=== PATIENT | male | born 1970 | race Caucasian/White ===

== ENCOUNTER 2017-01-27 21:40 | Observation (INO) | payer MEDICARE, OTHER ==
[~2017-01-27 21:40] MED LIST: NALOXONE HCL 0.4 MG/ML AMP IV PRN
[2017-01-27 22:06] VITALS: BP 189/100; PULSE 71; RESP 18; TEMP 98; O2SAT 98
[2017-01-27] MEDS: SODIUM CHLORIDE 0.9% FLUSH 10 ML FLUSH IV FLUSH SCH (22:09)
[2017-01-27] MEDS: cloNIDine HCL 0.1 MG TAB PO PRN (22:09)
--- NOTE | 2017-01-27 23:24 | RADRPT ---
EXAM DATE/TIME: 01/27/2017 23:00 [facility] COMPARISON: No previous studies available for comparison. INDICATIONS : Shortness of breath with elevated D-Dimer. IV CONTRAST: 75 cc Omnipaque 350 (iohexol) IV RADIATION DOSE: 8.43 CTDIvol (mGy) MEDICAL HISTORY : Hypertension. SURGICAL HISTORY : None. ENCOUNTER: Initial ACUITY: 1 day PAIN SCALE: 0/10 LOCATION: chest TECHNIQUE: Volumetric scanning of the chest was performed using a pulmonary embolism protocol MIP images were re constructed. Using automated exposure control and adjustment of the mA and/or kV according to patien t size, radiation dose was kept as low as reasonably achievable to obtain optimal diagnostic quality images. DICOM format image data is available electronically for review and comparison. Follow-up recommendations for detected pulmonary nodules are based at a minimum on nodule size and pa tient risk factors according to Fleischner Society Guidelines. FINDINGS: PULMONARY ARTERIES: No filling defects are seen in the pulmonary arteries through the segmental level. LUNGS: There is no consolidation or pneumothorax . No concerning pulmonary nodule is visualized. Minimal b ilateral atelectasis in the costophrenic angles. PLEURAE: There is no pleural thickening or pleural effusion. MEDIASTINUM: There is good visualization of the great vessels of the middle mediastinum. No evidence of mediastin al or hilar adenopathy/mass. CONCLUSION: The study is negative for pulmonary embolism. Cesar Alfonso MD on January 27, 2017 at 23:20 Board Certified Radiologist. This report was verified electronically.
[2017-01-27] MEDS ORDERED: IOHEXOL 350 MG/ML 10 ML VIAL (for RAD DIAG) IV ONE (23:35)
[2017-01-27 23:45] VITALS: BP 168/93; PULSE 65; RESP 19; TEMP 98.3; O2SAT 97
[2017-01-28] VITALS (7 sets, daily range): BP systolic 150–164; BP diastolic 82–103; PULSE 48–76; RESP 18–54; TEMP 97.7–98.2; O2SAT 97–99
[2017-01-28] MEDS ORDERED: ACETAMINOPHEN/HYDROcodone 325 MG/5 MG TAB PO PRN (01:15)
[2017-01-28 07:38] LABS: AUTOMATED NEUTROPHIL # 4.3 TH/MM3 (1.8-7.7); BASOPHIL # 0.1 TH/MM3 (0-0.2); BASOPHIL % 1.1 % (0.0-2.0); EOSINOPHIL # 0.4 TH/MM3 (0-0.4); EOSINOPHIL % 5.2 % (0.0-4.0); HEMATOCRIT 36.2 % (39.0-51.0); HEMO FLAGS DIFF FINAL; LYMPH % 23.7 % (9.0-44.0); LYMPHOCYTE # 1.6 TH/MM3 (1.0-4.8); MEAN CELL VOLUME 81.1 FL (80.0-100.0); MEAN CORPUSCULAR HGB CONC 32.1 % (32.0-36.0); PLATELET COUNT 302 TH/MM3 (150-450); RED BLOOD COUNT 4.47 MIL/MM3 (4.50-5.90); RED CELL DISTRIBUTION WIDTH 20.9 % (11.6-17.2); WHITE BLOOD COUNT 6.9 TH/MM3 (4.0-11.0)
[2017-01-28 08:03] LABS: ANION GAP 5 MEQ/L (5-15); BLOOD UREA NITROGEN 16 MG/DL (7-18); CHLORIDE 111 MEQ/L (98-107); GLOMERULAR FILTRATION RATE 92 ML/MIN (>89); POTASSIUM 4.1 MEQ/L (3.5-5.1); SODIUM (NA) 142 MEQ/L (136-145)
[2017-01-28 08:15] LABS: CREATINE KINASE 66 U/L (39-308)
[2017-01-28] MEDS: SODIUM CHLORIDE 0.9% FLUSH 10 ML FLUSH IV FLUSH SCH ×2 (08:22→21:00)
--- NOTE | 2017-01-28 08:46 | HHI.HP ---
[facility] Service [facility] Primary Care Physician No Primary Care Physician Admission Diagnosis Diagnoses: Chief Complaint: shortness of breath Travel History International Travel<30 Days: No Contact w/Intl Traveler <30 Da: No Traveled to Known Affected Are: No History of Present Illness Written by Amparo Santoro, acting as scribe for Dr. Garcia on 01/28/17 at 08:35. This note was transcribed by scribe EMILEE Valle. I, Dr. Thuan Garcia personally performed the history, physical exam, and medical decision making; and confirmed the accuracy of the information in the transcribed note. Authenticated by Dr. Thuan Garcia on 01/28/17 at 19:39. 46-year-old male with history of tobacco use, chronic back pain, presents with a 1 month history of worsening shortness of breath. The patient reports he was hospitalized 2-3 months ago due to respiratory infection from exposure to black mold. He states he mostly recovered, denied any significant shortness of breath at that time, however over the past month has been experiencing worsening shortness of breath. He reports an occasional nonproductive cough. Denies fevers /chills. Denies chest pains. Over the past week he can hardly walk 10steps without becoming short of breath, associated with some dizziness and nausea. Symptoms relieved by rest. 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 He does admit he has been working from 5am to 1am recently in the heat and under a tin roof on the farm. He attributes his symptoms to heat exposure however brother at bedside says he's been working in this heat for over 20years. His mother had [place] in her 50s and 60s. He continues to smoke tobacco over 1 PPD. He has never had any cardiac work up with stress test or echo. He is supposed to be on antihypertensive medications but does not see a PCP for refills. He denies any other medical complaints at this time. Review of Systems Except as stated in HPI: all other systems reviewed are Neg Past Family Social History Past Medical History Hypertension Recent hospitalization 2-3 months ago for respiratory infection after exposure to black mold Chronic back pain Denies any history of heart disease or diabetes. Past Surgical History Left leg surgery with hardware (simon/plates/screws) 2001 Reported Medications Supposed to be on antihypertensives however has not had prescription lately Allergies: Coded Allergies: No Known Allergies (Unverified , 01/27/17) Active Ordered Medications Current Medications Medications (Trade) Dose Ordered Sig/Loan Route Start Time Stop Time Status Last Admin (NS Flush) 2 ml UNSCH PRN IV FLUSH 01/27/17 20:45 (NS Flush) 2 ml BID IV FLUSH 01/27/17 21:00 01/28/17 08:22 (Narcan Inj) 0.4 mg UNSCH PRN IV 01/27/17 20:45 (Catapres) 0.1 mg Q6H PRN PO 01/27/17 20:45 01/28/17 12:00 01/27/17 22:09 ([place] 5-325 Mg) 1 tab Q6H PRN PO 01/28/17 01:15 01/28/17 01:32 Family History Mother with [place] in her 50s and 60s Father with HTN, CVA, in his mid 60s Social History Smokes tobacco, a little over 1 PPD Drinks alcohol occasionally, a couple beers a day at most Denies any illicit drug use Physical Exam Vital Signs Vital Signs Date Time Temp Pulse Resp B/P Pulse Ox O2 Delivery O2 Flow Rate FiO2 01/28/17 05:08 97.7 54 20 150/94 97 01/28/17 00:45 59 01/27/17 23:45 98.3 65 19 168/93 97 01/27/17 22:06 98.0 71 18 189/100 98 Physical Exam GENERAL: Well-nourished, well-developed middle aged male patient in [facility]. SKIN: Warm and dry. No rash. HEAD: Normocephalic. Atraumatic. EYES: Pupils equal and round. No scleral icterus. No injection or drainage. ENT: No nasal bleeding or discharge. Mucous membranes pink and moist. NECK: Supple. Trachea midline. CARDIOVASCULAR: Regular rate and rhythm. S1, S2 noted. No murmur appreciated. RESPIRATORY: No accessory muscle use. Clear to auscultation. Breath sounds equal bilaterally. GASTROINTESTINAL: Abdomen soft, non-tender, nondistended. Normoactive bowel sounds x4. MUSCULOSKELETAL: Left villeda with chronic deformity. Extremities without clubbing , cyanosis, or edema. NEUROLOGICAL: Awake and alert. No obvious cranial nerve deficits. Motor grossly within normal limits. Normal speech. PSYCHIATRIC: Appropriate mood and affect; insight and judgment normal. Laboratory Laboratory Tests Test 01/27/17 01/28/17 23:15 06:00 Total Creatine Kinase 70 66 Troponin I 0.02 LESS THAN 0.02 White Blood Count 6.9 Red Blood Count 4.47 Hemoglobin 11.6 Hematocrit 36.2 Mean Corpuscular Volume 81.1 Mean Corpuscular Hemoglobin 26.0 Mean Corpuscular Hemoglobin 32.1 Concent Red Cell Distribution Width 20.9 Platelet Count 302 Mean Platelet Volume 7.7 Neutrophils (%) (Auto) 62.0 Lymphocytes (%) (Auto) 23.7 Monocytes (%) (Auto) 8.0 Eosinophils (%) (Auto) 5.2 Basophils (%) (Auto) 1.1 Neutrophils # (Auto) 4.3 Lymphocytes # (Auto) 1.6 Monocytes # (Auto) 0.6 Eosinophils # (Auto) 0.4 Basophils # (Auto) 0.1 CBC Comment DIFF FINAL Differential Comment Sodium Level 142 Potassium Level 4.1 Chloride Level 111 Carbon Dioxide Level 26.0 Anion Gap 5 Blood Urea Nitrogen 16 Creatinine 0.89 Estimat Glomerular Filtration 92 Rate Random Glucose 91 Calcium Level 7.9 Result Diagram: 01/28/17 0600 01/28/17 [address] Angiography 01/27/17 0000 Signed Impressions: Service Date/Time: Friday, January 27, 2017 23:00 - CONCLUSION: The study is negative for pulmonary embolism. Cesar Alfonso MD Assessment and Plan Problem List: (1) Dyspnea on exertion ICD Code: R06.09 Status: Acute Assessment and Plan 46-year-old male with history of tobacco use, chronic back pain, presents with a 1 month history of worsening shortness of breath. Initially presented to [facility] ER, [facility]. Dyspnea: possible angina equivalent. +risk factors with HTN, tobacco use, + family hx. No prior cardiac evaluation. No signs of fluid overload. -D-dimer elevated, CT-PA images reviewed, negative for PE -ACS ruled out with negative serial cardiac enzymes x4, however EKG with T wave inversion in lead 3 -start on aspirin, ACEi, BB, nitro prn, IV morphine prn, O2 as needed -check lipid profile -monitor on telemetry -check nuclear stress test -check echocardiogram - Mild anemia due to unknown etiology - Check stool guaiac x 2 - Will get Iron studies, ferritin level. Also check TSH, free T4. - MCV is barely above lower limit of normal. - If indicated, we will start Iron supplementation. Hypertension: supposed to be on antihypertensives however does not see PCP for refills -HR around upper 40s and 50s. Will start patient on Amlodipine 5mg Qday. 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 DVT Prophylaxis: teds/SCDs Discussed Condition With Patient, patient's brother Amparo Santoro PA-C Jan 28, 2017 08:46 Shay Garcia DO Jan 28, 2017 19:47
[2017-01-28] MEDS: cloNIDine HCL 0.1 MG TAB PO PRN (09:14)
[2017-01-28] MEDS ORDERED: NITROGLYCERIN 0.4 MG SL 25 TABS/BTL SL PRN (10:30)
[2017-01-28] MEDS ORDERED: LISINOPRIL 10 MG TAB PO SCH (10:30)
[2017-01-28] MEDS: ASPIRIN EC 81 MG TABEC PO SCH (11:00)
[2017-01-28] MEDS: MORPHINE SULFATE 4 MG/ML INJ IV PRN ×2 (11:00→21:24)
[2017-01-28 12:11] LABS: HDL CHOLESTEROL 55.7 MG/DL (40.0-60.0)
[2017-01-28] MEDS ORDERED: REGADENOSON INJ 0.4 MG/5 ML SYR ONE (14:49)
--- NOTE | 2017-01-28 14:58 | EKG ---
Date Performed: 01/28/2017 Time Performed: 06:13:45 PTAGE: 46 years EKG: SINUS BRADYCARDIA MODERATE INTRAVENTRICULAR CONDUCTION DELAY BORDERLINE ECG PREVIOUS TRACING : 01/27/2017 23.28 Compared to the previous tracing, now in bradycardia DOCTOR: Fernando Her Interpretating Date/Time 01/28/2017 14:57:17
--- NOTE | 2017-01-28 15:56 | RADRPT ---
EXAM DATE/TIME: 01/28/2017 13:54 CORRECTION: Encounter: Trial Acuity 1 day Pain Scale 1/10 Location Bilaterical Chest Corrected on: January 29, 2017; [facility] COMPARISON: No previous studies available for comparison. INDICATIONS : Angina. DOSE: 27.2 mCi Tc99m Myoview at stress. 8.6 mCi Tc99m Myoview at rest. 0.4 mg Lexiscan STRESS SYMPTOMS: Dyspnea and headache. EJECTION FRACTION: 51% MEDICAL HISTORY : Hypertension. SURGICAL HISTORY : Left foot. ENCOUNTER: inital ACUITY: 1 day PAIN SCALE: 1/10 LOCATION: bilateral chest TECHNIQUE: The patient underwent pharmacologic stress with infusion of prescribed dose. Continuous ECG tracing was monitored during stress. Gated SPECT imaging was performed after stress and conventional SPECT i maging was performed at rest. The examination was performed on a SPECT/CT scanner, both attenuation and non-corrected datasets were reviewed. FINDINGS: DISTRIBUTION: The maximum perfused segment at stress is in the anterior lateral wall. The summed stress score equal s 4 PERFUSION STUDY: The pattern of perfusion at stress is within normal limits. GATED STUDY: There is intact wall motion and thickening without hypokinetic or dyskinetic segments. CONCLUSION: 1. Normal wall motion calculated ejection fraction. 2. No fixed or reversible wall defects. RISK CATEGORY: Low (<1% Annual Mortality Rate) Eladio Bower MD on January 28, 2017 at 15:49 Board Certified Radiologist. This report was verified electronically.
--- NOTE | 2017-01-28 18:24 | ECHRPT ---
Indication: Shortness of breath CONCLUSIONS Normal left ventricular size. Mild concentric left ventricular hypertrophy. Jpva-nx-adycbtni mitral valve regurgitation. There is trace tricuspid valve regurgitation. Trivial pulmonary valve regurgitation. BP: / HR: Rhythm: Sinus MEASUREMENTS (Male / Female) Normal Values Technical Quality:Good 2D ECHO LV Diastolic Diameter PLAX 4.8 cm 4.2 - 5.9 / 3.9 - 5.3 cm LV Systolic Diameter PLAX 3.6 cm IVS Diastolic Thickness 1.7 cm 0.6 - 1.0 / 0.6 - 0.9 cm LVPW Diastolic Thickness 1.2 cm 0.6 - 1.0 / 0.6 - 0.9 cm LV Relative Wall Thickness 0.6 RV Internal Dim ED PLAX 2.1 cm LA Systolic Diameter LX 3.6 cm 3.0 - 4.0 / 2.7 - 3.8 cm M-MODE Aortic Root Diameter MM 3.5 cm AV Cusp Separation MM 2.7 cm DOPPLER AV Peak Velocity 142.0 cm/s AV Peak Gradient 8.1 mmHg LVOT Peak Velocity 109.0 cm/s LVOT Peak Gradient 4.8 mmHg MR Peak Velocity 535.0 cm/s MR Peak Gradient 114.5 mmHg TR Peak Velocity 187.0 cm/s TR Peak Gradient 14.0 mmHg FINDINGS LEFT VENTRICLE Normal left ventricular size. Mild concentric left ventricular hypertrophy. The left ventricular systolic function is normal with an estimated ejection fraction in the range of 60-65%. RIGHT VENTRICLE Normal right ventricular size and systolic function. LEFT ATRIUM The left atrial size is normal. RIGHT ATRIUM The right atrial size is normal. ATRIAL SEPTUM Normal atrial septal thickness without atrial level shunting by limited color doppler interrogation. AORTA The aortic root and proximal ascending aorta are normal in size on limited imaging. MITRAL VALVE Pvko-zm-cjrbuzbz mitral valve regurgitation. AORTIC VALVE Trileaflet aortic valve. No aortic valve stenosis or regurgitation. TRICUSPID VALVE There is trace tricuspid valve regurgitation. PULMONARY VALVE Trivial pulmonary valve regurgitation. VESSELS The inferior vena cava is normal in size. PERICARDIUM No pericardial effusion. Moiz Yip MD (Electronically Signed) Final Date:28 January 2017 18:23
[2017-01-28] MEDS ORDERED: METOPROLOL TARTRATE 25 MG TAB PO SCH (21:00)
[2017-01-28] MEDS: SODIUM CHLORIDE 0.9% FLUSH 10 ML FLUSH IV FLUSH PRN (21:24)
[2017-01-28 22:59] LABS: FERRITIN 35 NG/ML (26-388); FREE T4 0.91 NG/DL (0.76-1.46)
[2017-01-28 23:21] LABS: TRANSFERRIN IRON PROFILE 283 MG/DL (200-360)
[2017-01-29 00:41] VITALS: BP 129/80; PULSE 70; RESP 20; TEMP 98.2; O2SAT 97
[2017-01-29 01:45] VITALS: PULSE 61
[2017-01-29 04:29] VITALS: BP 152/86; PULSE 63; RESP 17; TEMP 98.3; O2SAT 97
[2017-01-29] MEDS: MORPHINE SULFATE 4 MG/ML INJ IV PRN (04:37)
[2017-01-29] MEDS: SODIUM CHLORIDE 0.9% FLUSH 10 ML FLUSH IV FLUSH PRN (04:37)
[2017-01-29 07:56] LABS: AUTOMATED NEUTROPHIL # 4.5 TH/MM3 (1.8-7.7); BASOPHIL % 0.6 % (0.0-2.0); EOSINOPHIL # 0.4 TH/MM3 (0-0.4); EOSINOPHIL % 5.1 % (0.0-4.0); HEMATOCRIT 36.2 % (39.0-51.0); HEMO FLAGS DIFF FINAL; LYMPH % 22.5 % (9.0-44.0); LYMPHOCYTE # 1.7 TH/MM3 (1.0-4.8); MEAN CELL VOLUME 82.1 FL (80.0-100.0); MEAN CORPUSCULAR HEMOGLOBIN 25.8 PG (27.0-34.0); MEAN CORPUSCULAR HGB CONC 31.4 % (32.0-36.0); MONO % 10.3 % (0.0-8.0); NEUT % 61.5 % (16.0-70.0); PLATELET COUNT 319 TH/MM3 (150-450); RED BLOOD COUNT 4.41 MIL/MM3 (4.50-5.90); RED CELL DISTRIBUTION WIDTH 20.8 % (11.6-17.2); WHITE BLOOD COUNT 7.4 TH/MM3 (4.0-11.0)
[2017-01-29 08:09] VITALS: BP 164/95; PULSE 55; RESP 18; TEMP 98.5; O2SAT 98
[2017-01-29] MEDS ORDERED: ALBUTEROL SULFATE 90 MCG/ACT HFA 8 GM INHALER INH ONE (08:15)
[2017-01-29 08:16] LABS: ANION GAP 7 MEQ/L (5-15); AST (GOT) 30 U/L (15-37); BICARBONATE 26.5 MEQ/L (21.0-32.0); BLOOD UREA NITROGEN 23 MG/DL (7-18); CHLORIDE 110 MEQ/L (98-107); GLOMERULAR FILTRATION RATE 80 ML/MIN (>89); POTASSIUM 4.7 MEQ/L (3.5-5.1); SODIUM (NA) 143 MEQ/L (136-145)
[2017-01-29 08:19] LABS: ALKALINE PHOSPHATASE 115 U/L (45-117); ALT (GPT) 39 U/L (12-78); TOTAL BILIRUBIN ADULT 0.1 MG/DL (0.2-1.0)
[2017-01-29] MEDS ORDERED: AMLO5 PO (08:25)
[2017-01-29] MEDS ORDERED: HYDR-3516 PO ×2 (08:25→08:35)
[2017-01-29] MEDS ORDERED: FERR325T20 PO (08:25)
[2017-01-29] MEDS ORDERED: VENTAER INH (08:27)
--- NOTE | 2017-01-29 08:28 | HHI.DCPOC ---
Discharge Care Plan Diagnosis: (1) Dyspnea on exertion (2) COPD suggested by initial evaluation (3) Iron deficiency anemia Goals to Promote Your Health * To prevent worsening of your condition and complications * To maintain your health at the optimal level Directions to Meet Your Goals Take your medications as prescribed Follow your dietary instruction Follow activity as directed Keep your appointments as scheduled Take your immunizations and boosters as scheduled If your symptoms worsen call your PCP, if no PCP go to Urgent Care Center or Emergency Room Smoking is Dangerous to Your Health. Avoid second hand smoke Call the 24-hour hour crisis hotline for domestic abuse at Amparo Santoro PA-C Jan 29, 2017 8:28 am
[2017-01-29] MEDS ORDERED: ALBUTEROL SULFATE 90 MCG/ACT HFA 8 GM INHALER INH SCH (08:30)
--- NOTE | 2017-01-29 08:36 | EKG ---
Date Performed: 01/27/2017 Time Performed: 23:28:06 PTAGE: 46 years EKG: Sinus rhythm NON-SPECIFIC ST/T WAVE CHANGES Compared to the PREVIOUS TRACING 01/27/17, no significant change DOCTOR: Fernando Her Interpretating Date/Time 01/29/2017 08:35:46
[2017-01-29] MEDS ORDERED: NORC5TAB PO (08:37)
[2017-01-29] MEDS ORDERED: SYMB160A INH (08:38)
[2017-01-29] MEDS ORDERED: PRED20 PO (08:51)
[2017-01-29] MEDS: ASPIRIN EC 81 MG TABEC PO SCH (08:59)
[2017-01-29] MEDS ORDERED: predniSONE 20 MG TAB PO SCH (09:00)
[2017-01-29] MEDS: SODIUM CHLORIDE 0.9% FLUSH 10 ML FLUSH IV FLUSH SCH (09:00)
[2017-01-29] MEDS ORDERED: FERROUS SULFATE 325 MG (65 MG ELEMENTAL IRON) TAB PO SCH (09:00)
[2017-01-29] MEDS ORDERED: BUDESONIDE-FORMOTEROL 160/4.5 MCG INHALER INH SCH (09:00)
[2017-01-29] MEDS ORDERED: amLODIPine BESYLATE 5 MG TAB PO SCH (09:00)
--- NOTE | 2017-01-29 09:00 | HHI.PR ---
Subjective Remarks Follow up for dyspnea. The patient reports feeling better today. He adamantly wants to go home. Brother at bedside states he did appear short of breath when he ambulated to the restroom, however the patient denies any shortness of breath. He reports an occasional nonproductive cough which is chronic for him. Denies fevers/chills. He does report continued low back pain and requesting pain medications at discharge. The patient also does not want to wait to give a stool sample to check hemoccult. He states "trust me, I know there's no blood." He doesn't want to wait in the hospital for further work up of anemia. Discussed that he should have his stool checked as outpatient and EGD/ colonoscopy if positive for blood, patient agrees. Of note, upon exam, patient had wheezing. He then admits that he has been noticing wheezing lately, worse in the mornings. He has been told in the past that he may have COPD but has never been formally diagnosed. Objective Vitals Vital Signs Date Time Temp Pulse Resp B/P Pulse Ox O2 Delivery O2 Flow Rate FiO2 01/29/17 08:09 98.5 55 18 164/95 98 01/29/17 04:42 14 01/29/17 04:29 98.3 63 17 152/86 97 01/29/17 01:45 61 01/29/17 00:41 98.2 70 20 129/80 97 01/28/17 22:13 98.1 76 18 161/82 99 01/28/17 11:32 98.1 48 18 153/90 99 01/28/17 10:51 164/95 Result Diagram: 01/29/17 0706 01/29/17 0706 Imaging Last Impressions Myocardial Perfusion Scan Nuc Med 01/28/17 0000 Signed Impressions: Service Date/Time: Saturday, January 28, 2017 13:54 - CONCLUSION: 1. Normal wall motion calculated ejection fraction. 2. No fixed or reversible wall defects. RISK CATEGORY: Low (<1%% Annual Mortality Rate) Eladio Bower MD CT Angiography 01/27/17 0000 Signed Impressions: Service Date/Time: Friday, January 27, 2017 23:00 - CONCLUSION: The study is negative for pulmonary embolism. Cesar Alfonso MD Objective Remarks GENERAL: Well-nourished, well-developed middle aged male patient in [facility]. SKIN: Warm and dry. No rash. HEENT: Normocephalic. Atraumatic.Pupils equal and round. Mucous membranes pink and moist. NECK: Supple. Trachea midline. CARDIOVASCULAR: Regular rate and rhythm. S1, S2 noted. No murmur appreciated. RESPIRATORY: No accessory muscle use. Minimal end expiratory wheezing, otherwise clear to auscultation. Breath sounds equal bilaterally. GASTROINTESTINAL: Abdomen soft, non-tender, nondistended. Normoactive bowel sounds x4. MUSCULOSKELETAL: No obvious deformities. Extremities without clubbing, cyanosis , or edema. NEUROLOGICAL: Awake and alert. No obvious cranial nerve deficits. Motor grossly within normal limits. Normal speech. PSYCHIATRIC: Appropriate mood and affect; insight and judgment normal. Medications and IVs Current Medications Medications (Trade) Dose Ordered Sig/Loan Route Start Time Stop Time Status Last Admin (NS Flush) 2 ml UNSCH PRN IV FLUSH 01/27/17 20:45 01/29/17 04:37 (NS Flush) 2 ml BID IV FLUSH 01/27/17 21:00 01/28/17 21:00 (Narcan Inj) 0.4 mg UNSCH PRN IV 01/27/17 20:45 ([place] 5-325 Mg) 1 tab Q6H PRN PO 01/28/17 01:15 01/28/17 01:32 (Ecotrin Ec) 81 mg DAILY PO 01/28/17 10:30 01/28/17 11:00 (Nitrostat Sl) 0.4 mg Q5M PRN SL 01/28/17 10:30 (Norvasc) 5 mg DAILY PO 01/29/17 09:00 (Proair Hfa Inh) 2 puff Q6HR INH 01/29/17 08:30 (Ferrous Sulfate) 325 mg BID PO 01/29/17 09:00 UNV A/P Problem List: (1) Dyspnea on exertion ICD Code: R06.09 Status: Acute Assessment and Plan 46-year-old male with history of tobacco use, chronic back pain, presents with a 1 month history of worsening shortness of breath. [facility]. Dyspnea: possible angina equivalent vs COPD. +cardiac risk factors with HTN, tobacco use, +family hx. No prior cardiac evaluation. No signs of fluid overload. -D-dimer elevated, CT-PA images reviewed, negative for PE -ACS ruled out with negative serial cardiac enzymes x4, however EKG with T wave inversion in lead 3 -given aspirin, ACEi, BB, nitro prn, IV morphine prn, O2 as needed -lipid profile wnl -monitor on telemetry -nuclear stress test unremarkable, no ischemia -echocardiogram normal with EF 60-65 Suspected COPD with mild exacerbation: patient with wheezing on exam this morning, suspect etiology of recent dyspnea -attempted to obtain PFTs however respiratory unable to complete today, will refer for outpatient PFTs -start on Symbicort bid and albuterol inh prn, respiratory provided teaching -start on prednisone 20mg bid x5days Mild anemia due to unknown etiology, MCV is barely above lower limit of normal. - Ordered stool guaiac x 2 however patient unable to provide stool and does not want to wait in hospital for this - iron studies consistent with iron deficiency, started on ferrous sulfate bid - further work up for anemia as outpatient, patient instructed to have hemoccult done and pursue EGD/colonoscopy if positive Hypertension: supposed to be on antihypertensives however does not see PCP for refills -HR around upper 40s and 50s, d/c BB. -Started patient on Amlodipine 5mg Qday. 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 DVT Prophylaxis: teds/SCDs Discharge Planning Discharge patient to home Condition on discharge: Improved Heart Healthy Diet as tolerated Ad Daisy activity Rx written: Norvasc 5mg daily, Symbicort bid, albuterol inh prn, prednisone 20mg bid, norco 5/325mg prn #20 Follow-up with primary care physician within 1 week Check hemoccult and PFTs as outpatient Amparo Santoro PA-C Jan 29, 2017 9:00 am
[2017-01-29] MEDS ORDERED: ALBUTEROL SULFATE 90 MCG/ACT HFA 18 GM INHALER INH SCH (10:00)
== END 2017-01-29 16:05 | disposition home or self-care (01) ==
LOC: NEDDLT 21:40 → NEPGCP 21:50
PROVIDERS: ADMIT Hospitalist; ATTEND Hospitalist
DX: R06.09 Other forms of dyspnea (principal); D50.9 Iron deficiency anemia, unspecified; I10 Essential (primary) hypertension; R00.1 Bradycardia, unspecified; I20.9 Angina pectoris, unspecified; F17.210 Nicotine dependence, cigarettes, uncomplicated; M54.9 Dorsalgia, unspecified; G89.29 Other chronic pain; Z82.49 Family history of ischemic heart disease and other diseases of the circulatory system
CPT/HCPCS: 71010; 71275; 78452; 80048; 80053; 80061; 82550; 82728; 83540; 83550; 83735; 84439; 84443; 84484; 85025; 85379; 85610; 85730; 93005; 93017; 93306; 96374; 96376; 99285; A9502; G0378; J2270; J2785; J7030; J7512; Q9967